=== PATIENT | male | born 1975 | race Caucasian/White ===

== ENCOUNTER 2017-05-17 06:17 | Emergency (ER) | payer OTHER ==
[~2017-05-17] VITALS: Ht 175.3 cm; Wt 89.4 kg
[~2017-05-17 06:17] MED LIST: BENTYL10 MG PO; BENTYL20 MG PO; FLEXERIL10 MG PO; LOMOTIL TABLET1 EACH PO; MOBIC7.5 MG PO; NAPROXEN500 MG PO; PANTOPRAZOLE SO40 MG PO; PREDNISONE20 MG PO; SERTRALINE HCL50 MG PO; ZOFRAN4 MG PO; [UNRECOGNIZED DRUG - REMARK]
[2017-05-17 08:44] LABS: ANION GAP 6 MEQ/L (2-14); CHLORIDE 105 MEQ/L (99-109); POTASSIUM 4.1 MEQ/L (3.7-5.4); SAMPLE HEMOLYSIS CHECK 0; SAMPLE ICTERIC CHECK 0; SAMPLE LIPEMIA CHECK 0; SODIUM 140 MEQ/L (136-147)
[2017-05-17 08:50] LABS: GFR ESTIMATE (CALCULATED) > 59 mL/min/; GLUCOSE 101 mg/dL (70-99); UREA NITROGEN (BUN) 10 mg/dL (9-23)
[2017-05-17] MEDS ORDERED: FIORICET 50-301 EACH PO (10:12)
[2017-05-17 10:19] VITALS: BP 134/67
== END 2017-05-17 10:20 | disposition home or self-care (01) ==
LOC: EME 06:17
PROVIDERS: Physician Assistant
DX: R51 Headache (principal); R42 Dizziness and giddiness; R11.0 Nausea; H53.8 Other visual disturbances; H53.142 Visual discomfort, left eye
CPT/HCPCS: 70470; 80048; 99281; 99285; J7040; J7512

== ENCOUNTER 2017-11-16 16:14 | Emergency (ER) | payer OTHER ==
[~2017-11-16] VITALS: Ht 175.3 cm; Wt 81.8 kg
[~2017-11-16 16:14] MED LIST changes: +FIORICET 50-301 EACH PO
[2017-11-16 17:18] LABS: HEMATOCRIT 43.4 % (38.0-50.0); HEMOGLOBIN 14.9 G/DL (12.5-16.6); MCH 28.1 PG (29.0-34.0); MCHC 34.3 G/DL (30.0-36.0); MCV 81.9 FL (86-99); PLATELET COUNT 216 K/uL (156-360); RBC DIS.WIDTH-CV 12.9 % (11.8-14.6); RBC DIS.WIDTH-SD 38.2 % (39-53); WHITE BLOOD COUNT 14.8 K/uL (4.1-10.2)
[2017-11-16 17:28] LABS: ALBUMIN 4.5 g/dL (3.2-4.8); CHLORIDE 105 mEq/L (99-109); POTASSIUM 3.9 mEq/L (3.7-5.4); SODIUM 142 mEq/L (136-147)
[2017-11-16 17:31] LABS: GLUCOSE 94 mg/dL (70-99); TOTAL PROTEIN 7.2 g/dL (6.4-8.3)
[2017-11-16 17:32] LABS: TOTAL BILIRUBIN 0.8 mg/dL (0.0-1.0)
[2017-11-16 17:33] LABS: SERUM ETHYL ALCOHOL < 10 mg/dL
[2017-11-16 17:34] LABS: ALKALINE PHOSPHATASE 48 IU/L (3-129); CREATININE 0.9 mg/dL (0.6-1.3); GFR ESTIMATE (CALCULATED) > 59 mL/min/ (58.99-99999)
[2017-11-16 17:35] LABS: UREA NITROGEN (BUN) 10 mg/dL (9-23)
[2017-11-16 17:36] LABS: AST (GOT) 18 IU/L (2-34)
[2017-11-16 17:37] LABS: ALT (GPT) 25 IU/L (3-49)
[2017-11-16 18:03] VITALS: BP 166/100
== END 2017-11-16 18:04 | disposition home or self-care (01) ==
LOC: EME 16:14
PROVIDERS: Emergency Medicine
DX: F33.1 Major depressive disorder, recurrent, moderate (principal); F43.21 Adjustment disorder with depressed mood; Z04.6 Encounter for general psychiatric examination, requested by authority; K50.90 Crohn's disease, unspecified, without complications; K58.9 Irritable bowel syndrome, unspecified; J45.909 Unspecified asthma, uncomplicated; Z98.890 Other specified postprocedural states; Z91.041 Radiographic dye allergy status
CPT/HCPCS: 80053; 81003; 85027; 90837; 99281; 99284; G0480